=== PATIENT | male | born 1945 | race Caucasian/White ===

== ENCOUNTER 2020-05-28 15:00 | Outpatient (RCR) | payer SELFPAY ==
[2020-03-10 15:24] VITALS: BP 118/68; PULSE 60; RESP 16; TEMP 37.1; O2SAT 98
[2020-03-10 15:28] VITALS: PULSE 60
--- NOTE | 2020-04-13 16:12 | PCCPR ---
Discussed next 12 sessions for alt CHF program. Pt said he would likely do another 12 sessions, but did not attend today 04/13. LM to see if pt plans to continue his CR or DC.
--- NOTE | 2020-04-14 08:13 | PCCPR ---
Pt plans to participate in another 12 sessions of the alt CHF program. He will return Oc 14th due to having a few dr appts.
--- NOTE | 2020-04-14 08:16 | PCCPR ---
Julius absent from sessions because he is out of town and has appointments, will return April 22.
--- NOTE | 2020-06-01 14:40 | PCCPR ---
Discharging-Julius called in & spoke with Bere. He states his foot isnt improving and he is going to go ahead & discharge from the program.
== END 2020-06-01 14:39 | disposition home or self-care (01) ==
LOC: ANHCPREHAB 15:00
DX: Z46.1 Encounter for fitting and adjustment of hearing aid (principal)
CPT/HCPCS: 99199; 93798